=== PATIENT | female | born 1980 | race Caucasian/White ===

== ENCOUNTER 2017-08-11 14:18 | Emergency (ER) | payer SELFPAY ==
[~2017-08-11] VITALS: Ht 162.5 cm; Wt 59.0 kg
[2017-08-11] MEDS ORDERED: CLINDAMYCIN HC300 MG PO (15:25)
== END 2017-08-11 15:32 | disposition home or self-care (01) ==
LOC: ED 14:18
DX: K02.9 Dental caries, unspecified (principal); F17.200 Nicotine dependence, unspecified, uncomplicated